=== PATIENT | male | born 1960 | race Caucasian/White ===

== ENCOUNTER → 2017-03-09 | Outpatient (CLI) | payer BC ==
--- NOTE | 2017-03-09 16:09 | CT ---
EXAMINATION TYPE: CT chest wo con DATE OF EXAM: 03/09/2017 COMPARISON: Prior CT chest June 29, 2012. Outside chest x-ray from yesterday. HISTORY: Abnormal cxr at doctor's office. Asbestos exposure. CT DLP: 441.70 mGycm. Automated Exposure Control for Dose Reduction was Utilized. TECHNIQUE: CT scan of the thorax is performed without IV contrast. FINDINGS: LUNGS: The lungs are grossly clear, there is no concerning parenchymal mass or nodule identified. T here is no pleural effusion or pneumothorax seen. No calcified pleural plaques are evident bilaterall y. The tracheobronchial tree is patent. MEDIASTINUM: Lack of IV contrast is noted to limit evaluation for mediastinal and especially hilar ad enopathy. There are no definitive greater than 1 cm hilar or mediastinal lymph nodes. No cardiomega ly or pericardial effusion is seen. OTHER: Patchy bilateral gynecomastia is redemonstrated. There is stable 3 mm calculus upper pole left kidney on axial image 72 redemonstrated. Smaller 1 mm calculus mid pole level right kidney on axial image 76 is suspected. IMPRESSION: No acute pulmonary process. No suspicious pulmonary mass or nodule.
== END | disposition home or self-care (01) ==
LOC: RADCTMAIN 15:43
PROVIDERS: ATTEND Internal Medicine Critical Care Medicine
DX: R07.9 Chest pain, unspecified (principal); Z77.090 Contact with and (suspected) exposure to asbestos
CPT/HCPCS: 71250

== ENCOUNTER → 2018-06-20 | Outpatient (CLI) | payer BC ==
--- NOTE | 2018-06-20 15:59 | XR ---
EXAMINATION TYPE: XR KUB DATE OF EXAM: 06/20/2018 COMPARISON: 05/22/2016 HISTORY: Pain TECHNIQUE: One view abdominal series FINDINGS: The osseous structures are intact. The bowel gas pattern is nonspecific. Right kidney: No definite calcification seen. There is limitation due to overlying bowel content. Left kidney: There is a calcification overlying the upper pole the left kidney measuring 7 mm in long axis. Pelvis: There are nonspecific multiple calcifications in pelvis. All measure less than 5 mm. Findings appear stable from previous exam and likely vascular. Arthropathy of the hips and hypertrophic change of the vertebral column. IMPRESSION: 1. 7 mm upper pole left renal calculus which is stable from previous exam.
[2018-06-20 19:55] LABS: Albumin 4.6 g/dL (3.80-4.90); Albumin/Globulin Ratio 2.3 (1.20-2.10); Anion Gap 7.9 mmol/L (4.00-12.00); Calcium 9.4 mg/dL (8.7-10.3); Carbon Dioxide 29.1 mmol/L (21.6-31.8); LDL Cholesterol,Calculated 71.8 mg/dL (0.0-131.0); Potassium 4.4 mmol/L (3.5-5.5); Total Bilirubin 1.1 mg/dL (0.3-1.2); Total Protein 6.6 g/dL (6.2-8.2); VLDL Calculation 24.2 mg/dL (5.00-40.00)
== END ==
LOC: LABWHC1 14:29
PROVIDERS: ATTEND Urology
DX: E78.2 Mixed hyperlipidemia (principal); D84.9 Immunodeficiency, unspecified
CPT/HCPCS: 36415; 74018; 80053; 80061; 82785

== ENCOUNTER → 2018-06-24 | Outpatient (CLI) | payer BC ==
[2018-06-24 07:55] LABS: Basophils % (A) 0 %; Eosinophils % (A) 0 %; HCT 49.6 % (39.0-53.0); HGB 16.8 gm/dL (13.0-17.5); Lymphocytes # (A) 1.4 k/uL (1.0-4.8); Lymphocytes % (A) 11 %; MCHC 33.9 g/dL (31.0-37.0); MCV 94.4 fL (80.0-100.0); Mean Platelet Volume 7.7; Monocytes # (A) 0.7 k/uL (0-1.0); Monocytes % (A) 5 %; Neutrophils # (A) 9.9 k/uL (1.3-7.7); Neutrophils % (A) 81 %; Platelet Count 189 k/uL (150-450); RBC 5.25 m/uL (4.30-5.90); WBC 12.3 k/uL (3.8-10.6)
== END | disposition home or self-care (01) ==
LOC: LABPAT 06:46
PROVIDERS: ATTEND Urology
DX: Z01.818 Encounter for other preprocedural examination (principal); I10 Essential (primary) hypertension; N35.919 Unspecified urethral stricture, male, unspecified site; Z79.899 Other long term (current) drug therapy
CPT/HCPCS: 36415; 85025; 93005

== ENCOUNTER 2018-06-30 06:40 | Day surgery (SDC) | payer BC ==
[2018-06-29 08:45] VITALS: BMI 32.1
--- NOTE | 2018-06-30 06:26 | P.GSHP ---
History of Present Illness H&P Date: 06/23/18 Chief Complaint: Weak urinary stream The patient is a 58-year-old male with a history of recurrent urolithiasis. He reports increased urinary frequency. He has known medial stenosis, and is suspected to possibly have a urethral stricture. He now comes for a meatotomy and possible direct visual internal ureterotomy (DVIU). - Constitutional Constitutional: Denies chills, Denies fever - Gastrointestinal Gastrointestinal: Denies nausea, Denies vomiting - Genitourinary (Male) Genitourinary: Reports urinary frequency, Denies flank pain Past Medical History - Past Family History Mother Family Medical History: Cancer Additional Family Medical History / Comment(s): breast cancer Daughter(s) Family Medical History: Cancer Additional Family Medical History / Comment(s): kidney cancer Medications and Allergies Home Medications Medication Instructions Recorded Confirmed Type Aspirin 325 mg PO DAILY 06/29/18 06/29/18 History Atenolol 25 mg PO 169906/29/18 06/29/18 History Wayne-3 Fatty Acids/Fish Oil [Fish 1 tab PO DAILY 06/29/18 06/29/18 History Oil 1,000 mg Softgel] Omeprazole [PriLOSEC] 20 mg PO AC-BID 06/29/18 06/29/18 History Quinapril HCl [Accupril] 5 mg PO 169906/29/18 06/29/18 History Simvastatin 40 mg PO 0 06/29/18 06/29/18 History Tamsulosin HCl [Flomax] 0.4 mg PO 169906/29/18 06/29/18 History buPROPion HCL [Wellbutrin Sr] 200 mg PO 169906/29/18 06/29/18 History Allergies Allergy/AdvReac Type Severity Reaction Status Date / Time No Known Allergies Allergy Verified 06/29/18 08:29 Surgical - Exam - General well developed, well nourished, no distress - Respiratory normal respiratory effort, clear to auscultation - Cardiovascular Rhythm: regular Abnormal Heart Sounds: no systolic murmur, no diastolic murmur, no rub, no S3 Gallop, no S4 Gallop, no click, no other - Abdomen Abdomen: soft, non tender, no guarding, no rigid, no rebound - Genitourinary normal penis with no external lesions, testicles non-tender, other (The urethral meatus is small in caliber) - Rectum Rectum: normal sphincter tone, no masses - Psychiatric oriented to time, oriented to person, oriented to place, speech is normal, memory intact Assessment and Plan (1) Urethral meatal stenosis Status: Acute Code(s): SNY7704 - SNOMED Code(s): 10482418 Plan: Meatotomy, cystoscopy, direct visual internal ureterotomy (DVIU). The procedures were reviewed in detail with the patient. Potential risks include anesthesia, bleeding, infection, recurrent stricture, and a deviated urinary stream.
[~2018-06-30 06:40] MED LIST: DEXAMETHASONE SOD PHOSPHATE 10 MG/ML 1 ML VIAL IV ONE; LACTATED RINGERS 1,000 ML IV SCH; LIDOCAINE 1% 20 ML VIAL (10MG/ML) FOR IV START INTRADERMA PRN; ONDANSETRON 4 MG/2 ML VIAL IVP ONE; SCOPOLAMINE 1.5MG/72HR PATCH TRANSDERM ONE
[2018-06-30 07:05] LABS: Glucose,Whole Blood 101 mg/dL (75-99)
[2018-06-30] MEDS ORDERED: fentaNYL (PF) 50 MCG/ML 2 ML AMP ONE (07:35)
[2018-06-30] MEDS ORDERED: PROPOFOL 10 MG/ML 20 ML VIAL IV ONE (07:35)
[2018-06-30] MEDS ORDERED: LIDOCAINE 1% INJ 10MG/ML (20 ML MDV) ONE (07:35)
[2018-06-30] MEDS ORDERED: MIDAZOLAM 2 MG/2 ML VIAL ONE (07:35)
--- NOTE | 2018-06-30 08:15 | P.OP ---
Date of Procedure: 06/30/18 Preoperative Diagnosis: Meatal stenosis, urethral stricture Postoperative Diagnosis: Same Procedure(s) Performed: Meatotomy, cystoscopy, direct visual internal urethrotomy (DVIU) Anesthesia: IVETTE Surgeon: Blane Ryan Estimated Blood Loss (ml): 10 IV fluids (ml): 650 Pathology: none sent Condition: stable Disposition: PACU Indications for Procedure: The patient is a 58-year-old male with a history of urethral stricture disease. He reports a weak urinary stream. On examination, the urethral meatus is somewhat diminished in caliber. Operative Findings: 1) Meatal stenosis, mild. 2). Bulbous urethral stricture. Description of Procedure: The patient was taken to the operating room and placed in the dorsolithotomy position, with his legs supported in Uzair stirrups. The external genitalia was prepped and draped sterilely. The 0 lens was used to advance the visual urethrotome into the urethra. A stricture was encountered within the bulbous urethra, measuring approximately 6 Pakistani in caliber. The length of the stricture was approximately 1 cm. the urethral meatus wouldn't accommodate the 19-Pakistani cystoscopic sheath, but not the 21-Pakistani visual urethrotome. Therefore, the ventral aspect of the urethral meatus was clamped for several minutes, then incised using tenotomy scissors. The meatus would still not accommodate the 21-Pakistani visual urethrotome, so Jose R sounds were used to dilate the meatus to 24-Pakistani. The visual urethrotome was then advanced into the urethra, and using the straight blade, the stricture was incised at the 12 o 'clock position. The incision was carried through the full-thickness of the stricture, which was not at all dense. It was then possible to advance the visual urethrotome into the bladder. Cystoscopy was performed. The 30 lens was used to introduce the 19-Pakistani start cystoscopic sheath through the urethra and into the bladder under direct vision. The prostate revealed a trilobar configuration. The bladder was examined in its entirety. Both ureteral orifices were of normal anatomic location and configuration, and clear urine effluxed from both. No tumors or foreign bodies were seen. Mild trabeculation of the bladder was noted. The cystoscope was removed, and an 18-Pakistani Christianson catheter was placed. The return was clear. The patient tolerated the procedure well was taken to the recovery room in stable condition.
[2018-06-30] MEDS: HYDROmorphone 0.5 MG/0.5 ML SYRINGE IVP PRN ×2 (08:37→08:41)
[2018-06-30 09:07] VITALS: TEMP 97.4
[2018-06-30] MEDS ORDERED: ENALAPRILAT 1.25 MG/ML 1 ML VIAL IVP ONE (10:29)
[2018-06-30] MEDS ORDERED: hydrALAZINE HCL 20 MG/ML 1 ML VIAL IVP ONE (10:32)
[2018-06-30 11:07] VITALS: RESP 18
[2018-06-30 11:31] VITALS: BP 153/90; PULSE 55
== END 2018-06-30 12:27 | disposition home or self-care (01) ==
LOC: OR 06:40
PROVIDERS: ATTEND Urology
DX: N35.912 Unspecified bulbous urethral stricture, male (principal); N32.89 Other specified disorders of bladder; K21.9 Gastro-esophageal reflux disease without esophagitis; F32.9 Major depressive disorder, single episode, unspecified; E78.5 Hyperlipidemia, unspecified; Z80.51 Family history of malignant neoplasm of kidney; Z80.3 Family history of malignant neoplasm of breast; R09.1 Pleurisy; G47.33 Obstructive sleep apnea (adult) (pediatric); Z99.89 Dependence on other enabling machines and devices; Z87.442 Personal history of urinary calculi; Z79.82 Long term (current) use of aspirin; Z79.899 Other long term (current) drug therapy
CPT/HCPCS: 52290; J2250; J0360; J1100; J0690; J2405; J2001; J3010; J2704; J1170

== ENCOUNTER → 2021-04-30 | Outpatient (CLI) | payer BC ==
--- NOTE | 2021-04-30 12:30 | CT ---
EXAMINATION TYPE: CT abdomen pelvis wo con DATE OF EXAM: 04/30/2021 COMPARISON: None HISTORY: Renal Colic CT DLP: 1477 mGycm Examination of the solid and hollow viscera is limited given the lack of contrast. FINDINGS: LUNG BASES: No evidence for nodule. No evidence for infiltrate. LIVER/GB: The gallbladder is unremarkable. No space-occupying hepatic lesion. PANCREAS: No pancreatic mass identified. No inflammatory process seen. SPLEEN: No evidence for splenomegaly. No intrasplenic lesions seen. ADRENALS: No adrenal nodules identified. No evidence for thickening. KIDNEYS: There is a 4.9 mm calculus within the urinary bladder compatible with recently passed calcul us. There is no evidence for hydronephrosis at this time. 3 mm calculus upper pole left kidney. 2.5 m m calculus lower pole right kidney and 2 mm calculus mid pole right kidney. BOWEL: Appendix has a normal appearance. No evidence of bowel obstruction. No inflammatory process. Lymph nodes: No evidence for adenopathy greater than 1 cm. Abdominal aorta: Atheromatous changes seen. No evidence for aneurysm. Genital organs: No significant abnormality. Other: No significant abnormality. IMPRESSION: 1. Calculus within the urinary bladder suggests a recently passed calculus.
== END | disposition home or self-care (01) ==
LOC: RADCTMAIN 11:48
PROVIDERS: ATTEND Urology
DX: N23 Unspecified renal colic (principal); N21.0 Calculus in bladder
CPT/HCPCS: 74176

== ENCOUNTER 2022-02-08 19:06 | Emergency (ER) | payer BC ==
[2022-02-08 19:19] VITALS: RESP 16; TEMP 97.8
--- NOTE | 2022-02-08 19:43 | ED ---
Head Injury HPI - General Chief complaint: Head Injury Stated complaint: fall, on thinners Time Seen by Provider: 02/08/22 19:30 Source: patient, family, RN notes reviewed, old records reviewed Mode of arrival: ambulatory Limitations: no limitations - History of Present Illness Initial comments: This is a well-appearing 61-year-old male who presents ambulatory with family after falling last night headfirst into a wood pile. Patient did not lose consciousness. He is on Eliquis for history of DVT. States that he has a headache that radiates down into his neck and shoulders today. MD Complaint: head injury, head pain, fall -: days(s) (1; 8pm yesterday) Location: other (vertex) Loss of Consciousness: no Place: outdoors Radiation: neck, other (shoulders) Severity scale (1-10): 9 - Related Data Home Medications Medication Instructions Recorded Confirmed Aspirin 325 mg PO DAILY 06/29/18 06/30/18 Radom-3 Fatty Acids/Fish Oil [Fish 1 tab PO DAILY 06/29/18 06/30/18 Oil 1,000 mg Softgel] Omeprazole [PriLOSEC] 20 mg PO AC-BID 06/29/18 06/30/18 Quinapril HCl [Accupril] 5 mg PO 1700 06/29/18 06/30/18 Simvastatin 40 mg PO 1700 06/29/18 06/30/18 Tamsulosin HCl [Flomax] 0.4 mg PO 1700 06/29/18 06/30/18 atenoloL 25 mg PO 1700 06/29/18 06/30/18 buPROPion HCL [Wellbutrin Sr] 200 mg PO 1700 06/29/18 06/30/18 Previous Rx's Medication Instructions Recorded Cyclobenzaprine [Flexeril] 10 mg PO TID PRN #15 tab 02/08/22 Allergies/Adverse reactions: Allergies Allergy/AdvReac Type Severity Reaction Status Date / Time No Known Allergies Allergy Verified 02/08/22 19:15 Review of Systems ROS Statement: Those systems with pertinent positive or pertinent negative responses have been documented in the HPI. ROS Other: All systems not noted in ROS Statement are negative. Past Medical History Past Medical History: Deep Vein Thrombosis (DVT), Hyperlipidemia, Hypertension Additional Past Medical History / Comment(s): Pleurisy History of Any Multi-Drug Resistant Organisms: None Reported Past Surgical History: Appendectomy Additional Past Surgical History / Comment(s): osteoarthritis Past Psychological History: No Psychological Hx Reported Smoking Status: Never smoker Past Alcohol Use History: None Reported Past Drug Use History: None Reported General Exam Limitations: no limitations General appearance: alert, in no apparent distress Head exam: Present: other (dried scale abrasion/laceration to vortex) Eye exam: Present: normal appearance. Absent: scleral icterus, conjunctival injection, periorbital swelling Neck exam: Absent: tenderness, meningismus Respiratory exam: Absent: respiratory distress, accessory muscle use Cardiovascular Exam: Present: bradycardia Neurological exam: Present: alert, oriented X3, normal gait Psychiatric exam: Present: normal affect, normal mood Skin exam: Present: warm, dry, normal color. Absent: cyanosis, diaphoretic Course Vital Signs 02/08/22 02/08/22 19:15 22:14 Temperature 97.8 F Pulse Rate 53 L 78 Respiratory 16 16 Rate Blood Pressure 155/84 148/83 O2 Sat by Pulse 96 98 Oximetry Medical Decision Making - Medical Decision Making Patient fell last night at 8 PM hitting his head on a woodpile. Did not lose consciousness. He did sustain an abrasion to the top of his head. Does take Eliquis for DVT history. Tetanus shot is up-to-date. CT of the brain and C-spine showed no intracranial process, no cervical spine fracture. Patient is able to ambulate with steady gait, no focal neurological deficits. Dr. Diana evaluated patient in [facility]. Patient's pain is likely musculoskeletal. He was given Norflex for pain and a prescription Flexeril. Instructed to increase his fluid intake. He'll be discharged home to follow up with his primary care doctor and return to the emergency room with any new or concerning symptoms. Disposition Clinical Impression: Closed head injury, Abrasion Disposition: HOME SELF-CARE Condition: Good Instructions (If sedation given, give patient instructions): Head Injury (ED), Abrasion (ED) Additional Instructions: Tylenol as needed for pain or discomfort. Follow-up with your primary care doctor next week. Return to the emergency room with any new or concerning symptoms Prescriptions: Cyclobenzaprine [Flexeril] 10 mg PO TID PRN #15 tab PRN Reason: Muscle Spasm Is patient prescribed a controlled substance at d/c from ED?: No Referrals: Balta Barfield MD [Primary Care Provider] - 1-2 days Time of Disposition: 21:17
[2022-02-08] MEDS ORDERED: ORPHENADRINE 30 MG/ML 2 ML VIAL IM STA (21:14)
--- NOTE | 2022-02-08 21:38 | CT ---
EXAMINATION TYPE: CT brain joslyn alexis DATE OF EXAM: 02/08/2022 COMPARISON: None HISTORY: Fall Head trauma CT DLP: 1797.6 mGycm Automated exposure control for dose reduction was used. Images of the brain and cervical spine obtained with no contrast. Ventricles have normal size. There is no mass effect or midline shift. No sign of intracranial hemorr marcus. The calvarium is intact. Skull base is intact. There is normal aeration of the mastoid sinuses. No evidence of cerebral edema. The cervical vertebra have normal alignment. There is vacuum disc and disc space narrowing at C6-7. T here is mild spurring of the endplates in the lower cervical spine. There is hypertrophic multilevel mild cervical facet arthropathy. No compression fracture. Prevertebral soft tissues are intact. 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 No fracture seen. There is uncovertebral sp urring and neural foraminal narrowing at C6-7 bilaterally. No fracture. Negative CT scan of the brain.
[2022-02-08 22:15] VITALS: BP 148/83; PULSE 78
== END 2022-02-08 22:14 | disposition home or self-care (01) ==
LOC: EC 19:06
DX: S00.91XA Abrasion of unspecified part of head, initial encounter (principal); I10 Essential (primary) hypertension; E78.5 Hyperlipidemia, unspecified; I82.409 Acute embolism and thrombosis of unspecified deep veins of unspecified lower extremity; Z79.01 Long term (current) use of anticoagulants; Z79.82 Long term (current) use of aspirin; W18.39XA Other fall on same level, initial encounter
CPT/HCPCS: 99283; 96374; 72125; 70450; 99284; 96372; J2360

== ENCOUNTER → 2023-08-12 | Outpatient (CLI) | payer BC ==
[2023-08-12 16:02] LABS: BUN/Creat Ratio 15.92 Ratio (12.00-20.00); Blood Urea Nitrogen 19.1 mg/dL (9.0-27.0); Chloride 105 mmol/L (96-109); Glucose 123 mg/dL (70-110); Potassium 4.6 mmol/L (3.5-5.5); Sodium 144 mmol/L (135-145)
[2023-08-12 16:03] LABS: Calcium 9.8 mg/dL (8.7-10.3); Carbon Dioxide 28.7 mmol/L (21.6-31.8)
[2023-08-12 17:03] LABS: Basophils # (A) 0.06 X 10*3/uL (0.00-0.10); Basophils % (A) 0.9 %; Eosinophils # (A) 0.34 X 10*3/uL (0.04-0.35); Eosinophils % (A) 5.3 %; HCT 50.3 % (39.6-50.0); HGB 17.2 g/dL (13.0-17.0); Lymphocytes # (A) 1.89 X 10*3/uL (0.90-5.00); Lymphocytes % (A) 29.4 %; MCH 31.7 pg (27.0-32.0); MCHC 34.2 g/dL (32.0-37.0); MCV 92.6 FL (80.0-97.0); Mean Platelet Volume 11.7 FL (9.5-12.2); Monocytes # (A) 0.57 X 10*3/uL (0.20-1.00); Monocytes % (A) 8.9 %; NRBC Per 100 WBC 0 X 10*3/uL (0.00-0.01); Neutrophils # (A) 3.55 X 10*3/uL (1.80-7.70); Neutrophils % (A) 55.3 %; Platelet Count 207 X 10*3/uL (140-440); RBC 5.43 X 10*6/uL (4.40-5.60); RDW 11.9 % (11.5-14.5); WBC 6.42 X 10*3/uL (4.50-10.00)
== END | disposition home or self-care (01) ==
LOC: LABPAT 12:03
PROVIDERS: ATTEND Urology
DX: Z01.812 Encounter for preprocedural laboratory examination (principal); N40.1 Benign prostatic hyperplasia with lower urinary tract symptoms; N21.0 Calculus in bladder
CPT/HCPCS: 36415; 80048; 85025

== ENCOUNTER 2023-08-19 11:04 | Day surgery (SDC) | payer BC ==
[2023-08-13 15:08] VITALS: BMI 32.0
--- NOTE | 2023-08-17 07:08 | P.GSHP ---
History of Present Illness H&P Date: 08/17/23 Chief Complaint: Weak urinary stream Patient is a 63-year-old white male with a history of BPH and urethral strictures. He underwent a DVIU in 2019. He has been treated with tamsulosin. In addition to a weak urinary stream, he has recently experienced hesitancy and dysuria, as well as occasional urinary urge incontinence. Cystoscopy shows a 6 mm bladder calculus, bladder trabeculation with cellules, and trilobar BPH with a large intravesical median lobe. - Cardiovascular Cardiovascular: Reports high blood pressure - Genitourinary (Male) Genitourinary: Reports as per HPI Past Medical History Past Medical History: Deep Vein Thrombosis (DVT), Hyperlipidemia, Hypertension, Osteoarthritis (OA), Prostate Disorder Additional Past Medical History / Comment(s): Pleurisy. DVT LT LEG. BLADDER STONE History of Any Multi-Drug Resistant Organisms: None Reported Past Surgical History: Appendectomy Additional Past Surgical History / Comment(s): COLONOSCOPY Past Anesthesia/Blood Transfusion Reactions: No Reported Reaction Smoking Status: Never smoker - Past Family History Mother Family Medical History: No Reported History Medications and Allergies Home Medications Medication Instructions Recorded Confirmed Type Omeprazole [PriLOSEC] 20 mg PO DAILY 06/29/18 08/13/23 History Quinapril HCl [Accupril] 5 mg PO DAILY 06/29/18 08/13/23 History atenoloL 25 mg PO DAILY 06/29/18 08/13/23 History buPROPion HCL [Wellbutrin Sr] 200 mg PO BID 06/29/18 08/13/23 History Atorvastatin [Lipitor] 40 mg PO DAILY 08/13/23 08/13/23 History Allergies Allergy/AdvReac Type Severity Reaction Status Date / Time No Known Allergies Allergy Verified 08/13/23 14:38 Surgical - Exam - General well developed, well nourished, no distress - Respiratory normal respiratory effort - Abdomen Abdomen: soft, non tender, no guarding, no rigid, no rebound - Genitourinary normal penis with no external lesions, testicles non-tender - Rectum Rectum: normal sphincter tone, no masses, other (Prostate moderately enlarged but smooth) - Psychiatric oriented to time, oriented to person, oriented to place, speech is normal, memory intact Assessment and Plan Assessment: Patient was advised to undergo removal of his bladder calculus. Alternative BPH treatment options were reviewed in detail, both medical and surgical. He has elected to undergo a TURP. (1) Calculus in bladder Status: Acute Code(s): N21.0 - CALCULUS IN BLADDER SNOMED Code(s): 59051044 (2) Benign prostatic hyperplasia with lower urinary tract symptoms Status: Acute Code(s): N40.1 - BENIGN PROSTATIC HYPERPLASIA WITH LOWER URINARY TRACT SYMP SNOMED Code(s): 245644788 Plan: Cystoscopy with cystoscopy lithotripsy, transurethral resection of prostate (TURP). The procedure has been reviewed in detail with the patient. He has been made aware of potential risks, which include anesthesia, bleeding, infection, bladder perforation, vesical neck contracture, urinary incontinence, erectile dysfunction, and retrograde ejaculation.
[~2023-08-19 11:04] MED LIST changes: -DEXAMETHASONE SOD PHOSPHATE 10 MG/ML 1 ML VIAL IV ONE; +HYDROmorphone 0.5 MG/0.5 ML SYRINGE IVP PRN; -LACTATED RINGERS 1,000 ML IV SCH; +LIDOCAINE 1% (10MG/ML) FOR IV START INTRADERMA PRN; -LIDOCAINE 1% 20 ML VIAL (10MG/ML) FOR IV START INTRADERMA PRN; -ONDANSETRON 4 MG/2 ML VIAL IVP ONE; -SCOPOLAMINE 1.5MG/72HR PATCH TRANSDERM ONE
--- NOTE | 2023-08-19 11:44 | XR ---
EXAMINATION TYPE: XR KUB DATE OF EXAM: 08/19/2023 11:24 AM CLINICAL INDICATION:Male, 63 years old with history of BPH with Obstruction Bladder Calculi N40.1 N21 .0; [facility] COMPARISON: 06/20/2018. TECHNIQUE: One radiographic view of the abdomen was obtained. FINDINGS: The bowel gas pattern is nonspecific without dilated loops of small or large bowel. There i s no evidence for organomegaly or pneumoperitoneum. The osseous structures are intact. Left upper re nal calculus suggested measuring up to 5 mm. Fecal material and gas are demonstrated throughout the c olon and rectum. Mild degeneration changes throughout the spine spine. IMPRESSION: * Left upper renal calculus * Nonspecific bowel gas pattern without radiographic evidence for acute process.
[2023-08-19] MEDS: LACTATED RINGERS 1,000 ML IV SCH (12:06)
[2023-08-19] MEDS: ONDANSETRON 4 MG/2 ML VIAL IVP ONE (12:06)
[2023-08-19] MEDS: DEXAMETHASONE SOD PHOSPHATE 4 MG/ML 1 ML VIAL IV ONE (12:06)
[2023-08-19] MEDS: MIDAZOLAM 2 MG/2 ML VIAL IV PRN (12:09)
[2023-08-19] MEDS ORDERED: SUCCINYLCHOLINE CHLORIDE 200 MG/10 ML VIAL IV ONE (14:24)
[2023-08-19] MEDS ORDERED: HYDROmorphone (PF) 1 MG/ML ONE (14:24)
[2023-08-19] MEDS ORDERED: GLYCOPYRROLATE 0.2 MG/ML 2 ML VIAL ONE (14:24)
[2023-08-19] MEDS ORDERED: ROCURONIUM 10 MG/ML (5 ML VIAL) IV ONE (14:24)
[2023-08-19] MEDS ORDERED: fentaNYL (PF) 50 MCG/ML 2 ML AMP ONE (14:24)
[2023-08-19] MEDS ORDERED: MIDAZOLAM 2 MG/2 ML VIAL ONE (14:24)
[2023-08-19] MEDS ORDERED: NEOSTIGMINE 1 MG/ML 10 ML VIAL ONE (14:24)
[2023-08-19] MEDS ORDERED: LIDOCAINE 1% INJ 10MG/ML (20 ML MDV) ONE (14:24)
[2023-08-19] MEDS ORDERED: PROPOFOL 10 MG/ML 20 ML VIAL IV ONE (14:24)
[2023-08-19] MEDS: ceFAZolin 3 GM in SODIUM CHLORIDE 0.9% 100 ML IVPB PRN (14:29)
[2023-08-19] MEDS: LACTATED RINGERS 1,000 ML IV ONE (16:20)
--- NOTE | 2023-08-19 16:54 | P.OP ---
Date of Procedure: 08/19/23 Preoperative Diagnosis: Bladder calculus, BPH with obstruction Postoperative Diagnosis: Same Procedure(s) Performed: Cystoscopy with removal of bladder calculus, bipolar transurethral resection of prostate (TURP) Anesthesia: IVETTE Surgeon: Blane Ryan Estimated Blood Loss (ml): 50 IV fluids (ml): 900 Pathology: other (Bladder calculus, prostate chips) Condition: stable Disposition: PACU Indications for Procedure: Patient is a 63-year-old white male with a history of BPH and urethral strictures. He underwent a DVIU in 2019. He has been treated with tamsulosin. In addition to a weak urinary stream, he has recently experienced hesitancy and dysuria, as well as occasional urinary urge incontinence. Cystoscopy shows a 6 mm bladder calculus, bladder trabeculation with cellules, and trilobar BPH with a large intravesical median lobe. Operative Findings: 5 mm bladder calculus, successfully removed. Trilobar BPH resulting in complete obstruction. Description of Procedure: The patient was taken in the operating room and placed in the dorsolithotomy position. The external genitalia was prepped and draped sterilely. The 21 Somali Hernandez cystoscopic sheath was passed through the urethra and into the bladder under direct vision. A wide caliber urethral stricture was noted, but there was no resistance to passing the cystoscope. The prostate was visually occluded, with a trilobar configuration. The median lobe was prominent and extended intravesically. The ureteral orifice ease appeared normal. No tumors were seen. A 5 mm bladder calculus was seen and was removed through the cystos cope. The Macfarlan urethrotome was used to incise the urethra to 26 Somali. The 25-Somali ACMI resectoscope sheath was introduced into the bladder. Using the bipolar cutting loop, the median lobe was resected in its entirety. Next, the floor of the prostate was resected, up to the verumontanum. The lateral lobes were resected down to the surgical capsule. Next, the anterior tissue was resected. The residual apical tissue was then carefully resected, with care taken to avoid injury to the external urinary sphincter. The resection was carried down to the surgical capsule in all 4 quadrants. The prostatic fossa was then carefully examined, and any areas of bleeding were controlled with electrocautery. Excellent hemostasis was attained. The resectoscope was withdrawn into the bulbous urethra. The external urinary sphincter remained intact. The prostatic fossa was open. The [employer] evacuator was used to remove all prostate chips from the bladder. These were saved and sent for pathologic examination. The resectoscope was removed, and a 20 Somali Christianson catheter was placed. The return was essentially clear. The patient tolerated the procedure well was taken to the recovery room in stable condition.
[2023-08-19 16:58] VITALS: RESP 16; TEMP 97
[2023-08-19 18:00] VITALS: BP 136/78; PULSE 55
== END 2023-08-19 18:23 | disposition home or self-care (01) ==
LOC: OR 11:04
PROVIDERS: ATTEND Urology
DX: C61 Malignant neoplasm of prostate (principal); N21.0 Calculus in bladder; I10 Essential (primary) hypertension; E78.5 Hyperlipidemia, unspecified; M19.90 Unspecified osteoarthritis, unspecified site; K21.9 Gastro-esophageal reflux disease without esophagitis; I31.9 Disease of pericardium, unspecified; Z98.890 Other specified postprocedural states; Z79.899 Other long term (current) drug therapy; Z90.49 Acquired absence of other specified parts of digestive tract; Z86.718 Personal history of other venous thrombosis and embolism
CPT/HCPCS: 52601; 88344; 88305; 82365; 74018; J2250; J0330; J1100; J2710; J0690; J2405; J2001; J3010; J1170; J2704

== ENCOUNTER → 2023-10-18 | Outpatient (CLI) | payer BC ==
[2023-10-18 14:58] LABS: ALT 42 U/L (10-49); AST 26 U/L (14-35); Albumin 4.6 g/dL (3.8-4.9); Alkaline Phosphatase 92 U/L (41-126); BUN/Creat Ratio 14.18 Ratio (12.00-20.00); Blood Urea Nitrogen 15.6 mg/dL (9.0-27.0); Calcium 9.4 mg/dL (8.7-10.3); Carbon Dioxide 27.3 mmol/L (21.6-31.8); Chloride 104 mmol/L (96-109); Chol/HDL Ratio 3.05 Ratio; Globulin 2.3 g/dL (1.6-3.3); Glucose 113 mg/dL (70-110); LDL Cholesterol,Calculated 68.1 mg/dL (0.0-131.0); Potassium 4.5 mmol/L (3.5-5.5); Sodium 141 mmol/L (135-145); Total Bilirubin 0.7 mg/dL (0.3-1.2); Total Protein 6.9 g/dL (6.2-8.2)
== END | disposition home or self-care (01) ==
LOC: LABWHC1 09:53
PROVIDERS: ATTEND Internal Medicine Interventional Cardiology
DX: I10 Essential (primary) hypertension (principal); E78.2 Mixed hyperlipidemia
CPT/HCPCS: 36415; 80053; 80061

== ENCOUNTER 2024-04-03 08:04 | Observation (INO) | payer BC ==
[2024-04-03] MEDS: ASPIRIN 81 MG PO STA (08:36)
[2024-04-03 08:42] LABS: Basophils # (A) 0.1 k/uL (0-0.2); Basophils % (A) 1 %; Eosinophils # (A) 0.2 k/uL (0-0.7); Eosinophils % (A) 4 %; HCT 49.1 % (39.0-53.0); HGB 16.5 gm/dL (13.0-17.5); Lymphocytes # (A) 1.6 k/uL (1.0-4.8); Lymphocytes % (A) 25 %; MCH 31.5 pg (25.0-35.0); MCHC 33.6 g/dL (31.0-37.0); MCV 93.6 fL (80.0-100.0); Monocytes # (A) 0.5 k/uL (0-1.0); Monocytes % (A) 7 %; Neutrophils # (A) 3.9 k/uL (1.3-7.7); Neutrophils % (A) 61 %; Platelet Count 170 k/uL (150-450); RBC 5.24 m/uL (4.30-5.90); RDW 12.1 % (11.5-15.5); WBC 6.4 k/uL (3.8-10.6)
--- NOTE | 2024-04-03 08:50 | ED ---
Chest Pain HPI - General Chief Complaint: Chest Pain Stated Complaint: chest pain Time Seen by Provider: 04/03/24 08:10 Source: patient, RN notes reviewed Mode of arrival: wheelchair Limitations: no limitations - History of Present Illness Initial Comments: 63-year-old male presents emergency department complaint of chest pain, epigastric pain. Patient states this started around midnight states he had some sharp pain in his central lower chest and his right arm. He states he now just feels like a pressure in his chest he states he does not feel currently short of breath. Patient denies any fevers or chills he states he does have a history of hyperlipidemia he has had a prior heart cath years ago but no prior cardiac stents. He denies any abdominal or lower back pain denies any focal weakness. - Related Data Home Medications Medication Instructions Recorded Confirmed Omeprazole [PriLOSEC] 20 mg PO DAILY 06/29/18 04/03/24 atenoloL 25 mg PO DAILY 06/29/18 04/03/24 buPROPion HCL [Wellbutrin Sr] 200 mg PO BID 06/29/18 04/03/24 Atorvastatin [Lipitor] 40 mg PO DAILY 08/13/23 04/03/24 Multivitamins, Thera [Multivitamin 1 tab PO DAILY 04/03/24 04/03/24 (formulary)] ramipriL 10 mg PO DAILY 04/03/24 04/03/24 Allergies Allergy/AdvReac Type Severity Reaction Status Date / Time No Known Allergies Allergy Verified 04/03/24 10:57 Review of Systems ROS Statement: Those systems with pertinent positive or pertinent negative responses have been documented in the HPI. ROS Other: All systems not noted in ROS Statement are negative. EKG Findings - EKG Comments: EKG Findings:: EKG performed today: 17 sinus bradycardia rate of 59 UT 203 QRS 84 QT/QTc 396/394. Repeat EKG performed at 8: 46 sinus rhythm with multiple PVCs rate of 78 QRS 94 QT/QTc 388/421 - EKG Results: EKG: interpreted by RUSSELL Past Medical History Past Medical History: Deep Vein Thrombosis (DVT), Hyperlipidemia, Hypertension Additional Past Medical History / Comment(s): Pleurisy History of Any Multi-Drug Resistant Organisms: None Reported Past Surgical History: Appendectomy, Prostate Surgery Additional Past Surgical History / Comment(s): osteoarthritis, TURP procedure Past Anesthesia/Blood Transfusion Reactions: No Reported Reaction Past Psychological History: No Psychological Hx Reported Smoking Status: Never smoker Past Alcohol Use History: None Reported Past Drug Use History: None Reported - Past Family History Mother Family Medical History: No Reported History General Exam Limitations: no limitations General appearance: alert, in no apparent distress Head exam: Present: atraumatic, normocephalic, normal inspection Eye exam: Present: normal appearance, PERRL, EOMI. Absent: scleral icterus, conjunctival injection, periorbital swelling ENT exam: Present: normal exam, normal oropharynx, mucous membranes moist Neck exam: Present: normal inspection, full ROM. Absent: tenderness, meningismus, lymphadenopathy Respiratory exam: Present: normal lung sounds bilaterally. Absent: respiratory distress, wheezes, rales, rhonchi, stridor Cardiovascular Exam: Present: regular rate, normal rhythm, normal heart sounds. Absent: systolic murmur, diastolic murmur, rubs, gallop, clicks GI/Abdominal exam: Present: soft, normal bowel sounds. Absent: distended, tenderness, guarding, rebound, rigid Course Vital Signs 04/03/24 04/03/24 04/03/24 08:06 08:39 09:57 Temperature 97.4 F L Pulse Rate 63 76 70 Respiratory 18 18 18 Rate Blood Pressure 149/85 162/69 O2 Sat by Pulse 97 95 97 Oximetry 04/03/24 04/03/24 04/03/24 10:32 11:37 13:18 Temperature Pulse Rate 70 80 70 Respiratory 16 16 16 Rate Blood Pressure 147/84 156/89 153/90 O2 Sat by Pulse 96 97 96 Oximetry Chest Pain MDM - MDM Was pt. sent in by a medical professional or institution (, PA, RECORDIST CHIEF, urgent care, hospital, or group home...) When possible be specific @ -No Did you speak to anyone other than the patient for history (EMS, parent, family, police, friend...)? What history was obtained from this source @ -No Did you review nursing and triage notes (agree or disagree)? Why? @ -I reviewed and agree with nursing and triage notes Were old charts reviewed (outside hosp., previous admission, EMS record, old EKG, old radiological studies, urgent care reports/EKG's, group home records)? Report findings @ -No old charts were reviewed Differential Diagnosis (chest pain, altered mental status, abdominal pain women, abdominal pain men, vaginal bleeding, weakness, fever, dyspnea, syncope, headache, dizziness, GI bleed, back pain, seizure, CVA, palpatations, mental health, musculoskeletal)? @ -Differential Chest Pain: Stable Angina, Unstable Angina, STEMI, NSTEMI Aortic Dissection, Pneumothorax, Musculoskeletal, Esophageal Spasm GERD, Cholecystitis, Pancreatitis, Zoster, this is not meant to be an all-inclusive list. EKG interpreted by me (3pts min.). @ -As above X-rays interpreted by me (1pt min.). @ -Chest x-ray shows no acute cardiopulmonary process CT interpreted by me (1pt min.). @ -CT angio of the chest shows no evidence of PE, possible nodule. U/S interpreted by me (1pt. min.). @ -Ultrasound venous Doppler left leg negative for DVT. What testing was considered but not performed or refused? (CT, X-rays, U/S, labs)? Why? @ -None What meds were considered but not given or refused? Why? @ -None Did you discuss the management of the patient with other professionals (professionals i.e. , PA, RECORDIST CHIEF, lab, RT, psych nurse, social work instructor, leisure travel agent, teacher, safety and security officer, casework specialist)? Give summary @ -Dr. Barfield for admission Was smoking cessation discussed for >3mins.? @ -No Was critical care preformed (if so, how long)? @ -No Were there social determinants of health that impacted care today? How? (Homelessness, low income, unemployed, alcoholism, drug addiction, transportation, low edu. Level, literacy, decrease access to med. care, halfway, rehab)? @ -No Was there de-escalation of care discussed even if they declined (Discuss DNR or withdrawal of care, Hospice)? DNR status @ -No What co-morbidities impacted this encounter? (DM, HTN, Smoking, COPD, CAD, Cancer, CVA, ARF, Chemo, Hep., AIDS, mental health diagnosis, sleep apnea, morbid obesity)? @ -Hyperlipidemia Was patient admitted / discharged? Hospital course, mention meds given and route, prescriptions, significant lab abnormalities, going to OR and other pertinent info. @ -Admitted patient admitted for cardiac rule out negative CT, laboratory studies. Patient had ultrasound left lower extremity which was also negative for DVT. Patient will have echocardiogram, repeat laboratory studies. Undiagnosed new problem with uncertain prognosis? @ -No Drug Therapy requiring intensive monitoring for toxicity (Heparin, Nitro, Insulin, Cardizem)? @ -No Were any procedures done? @ -No Diagnosis/symptom? @ -Chest pain Acute, or Chronic, or Acute on Chronic? @ -Acute Uncomplicated (without systemic symptoms) or Complicated (systemic symptoms)? @ -Complicated Side effects of treatment? @ -No Exacerbation, Progression, or Severe Exacerbation? @ -No Poses a threat to life or bodily function? How? (Chest pain, [place], [place], pneumonia, PE, COPD, DKA, ARF, appy, cholecystitis, CVA, Diverticulitis, Homicidal, Suicidal, threat to staff... and all critical care pts) @ -yes Possible ACS, causing cardiac arrest. Disposition Clinical Impression: Chest pain Disposition: ADMITTED IP TO THIS [facility] Time of Disposition: 11:20
[2024-04-03 08:53] LABS: ALT 37 U/L (4-49); African American GFR (CKD) >90 (>60 ml/min/1.73 sqM); Albumin 4.6 g/dL (3.5-5.0); Anion Gap 10 mmol/L; Blood Urea Nitrogen 22 mg/dL (9-20); Carbon Dioxide 23 mmol/L (22-30); Chloride 105 mmol/L (98-107); Glucose 140 mg/dL (74-99); Non-African American GFR(CKD) 80 (>60 ml/min/1.73 sqM); Sodium 138 mmol/L (137-145); Total Bilirubin 1.3 mg/dL (0.2-1.3); Total Protein 7.3 g/dL (6.3-8.2)
[2024-04-03 08:56] LABS: AST 34 U/L (17-59); INR 1.1 (<1.2); Partial Thromboplastin Time 25.1 sec (22.0-30.0); Potassium 4.1 mmol/L (3.5-5.1); Prothrombin Time 11.5 sec (10.0-12.5)
[2024-04-03 08:57] LABS: Alkaline Phosphatase 80 U/L (38-126)
[2024-04-03 09:02] LABS: NT-Pro-B-Type Natriuretic Pept 216 pg/mL
--- NOTE | 2024-04-03 09:20 | XR ---
EXAMINATION TYPE: XR chest 2V DATE OF EXAM: 04/03/2024 8:36 AM COMPARISON: None CLINICAL INDICATION: Male, 63 years old with history of Chest Pain; TECHNIQUE: XR chest 2V Frontal and lateral views of the chest. FINDINGS: Lungs/Pleura: There is no evidence of pleural effusion, focal consolidation, or pneumothorax. Pulmonary vascularity: Unremarkable. Heart/mediastinum: Cardiomediastinal silhouette is unremarkable. Musculoskeletal: No acute osseous pathology. IMPRESSION: No acute cardiopulmonary disease/process. [facility], , 04/03/2024 9:18 AM
--- NOTE | 2024-04-03 10:21 | US ---
EXAMINATION TYPE: US venous doppler duplex LE LT DATE OF EXAM: 04/03/2024 10:13 AM COMPARISON: NONE CLINICAL INDICATION: Male, 63 years old with history of pain; Pain x 10 hours. Hx clot in left leg 4 years ago per patient., TECHNIQUE: The lower extremity deep venous system is examined utilizing real time linear array sonog lupillo with graded compression, color doppler sonography, and spectral doppler. SIDE PERFORMED: Left FINDINGS: VESSELS IMAGED: Common Femoral Vein Deep Femoral Vein Greater Saphenous Vein * Femoral Vein Popliteal Vein Small Saphenous Vein * Proximal Calf Veins (* superficial vessels) Left Leg: No evidence of DVT. IMPRESSION: No ultrasound evidence for deep venous thrombosis. [facility], , 04/03/2024 10:19 AM
--- NOTE | 2024-04-03 10:27 | CT ---
EXAMINATION TYPE: CT chest angio for PE DATE OF EXAM: 04/03/2024 COMPARISON: 03/09/2017 and radiograph same day HISTORY: 63-year-old male with chest pain, Positive D-dimer TECHNIQUE: Contiguous axial scanning of the chest performed with IV Contrast, patient injected with 1 00 ml mL of Isovue 370. Coronal/sagittal MIP reconstructions performed. CT DLP: 624 mGycm Automated exposure control for dose reduction was used. FINDINGS: The heart is upper limits of normal in size without pericardial effusion. No flattening of the interv entricular septum or reflux of contrast into the hepatic veins. Ascending aorta ectatic at 3.8 cm. In metatarsal vessel branching anatomy. Ectatic upper descending t horacic aorta up to 3.4 cm. There is a prominent right hilar lymph node measuring 1.7 cm. Otherwise, no thoracic lymphadenopathy by CT size criteria. Satisfactory opacification of the pulmonary arterial system. Limitation due to breathing motion artif act. No large central or definite lobar branch pulmonary embolus. Some of the segmental and more dist al arterial branches are limited due to the breathing artifact. No definite pulmonary embolus is seen . Lungs show no consolidation or pleural effusion. Tiny hiatal hernia. Visualized upper abdomen shows low-attenuation in the hepatic parenchyma compatib le with fatty infiltration. Nonobstructive 4 mm left renal stone. Bones: Mild degenerative disc disease throughout the thoracic spine. IMPRESSION: 1. BREATHING MOTION ARTIFACT LIMITING THE EVALUATION. NO DEFINITE PULMONARY EMBOLUS. 2. A prominent right hilar lymph node measuring 1.7 cm. This may be reactive/post inflammatory. Recom mend three-month follow-up CT chest to ensure stability/resolution and exclude a neoplastic etiology. 3. Tiny hiatal hernia and hepatic steatosis. 4 mm nonobstructive left renal stone. [facility], , 04/03/2024 10:24 AM
[2024-04-03] MEDS ORDERED: NITROGLYCERIN SL TABS 0.4 MG TAB SUBLINGUAL PRN (11:17)
[2024-04-03] MEDS: atenoloL 25 MG TAB PO SCH (13:17)
[2024-04-03] MEDS: lisinopriL 20 MG TAB PO SCH (13:17)
[2024-04-03] MEDS: ATORVASTATIN 40 MG TAB PO SCH (13:17)
--- NOTE | 2024-04-03 13:46 | P.CRDCN ---
History of Present Illness Consult date: 04/03/24 Consult reason: chest pain History of present illness: This is a 63-year-old male patient of Dr. Hyde with past medical history of hypertension, dyslipidemia, nonischemic cardiomyopathy, DVT, PVCs. We have been asked to evaluate the patient for chest pain. Patient states that he was sitting in his recliner and simultaneously he had electrifying mid chest pain and also electrifying pain in his right hand. He states it had been about 6 ti mes around midnight pain did not seem to be related to movement. No lightheadedness or dizziness, no syncopal episodes. Blood pressure 156/89, heart rate 80, pulse ox 97% on room air. Patient is seen today in the emergency center waiting for a bed on the cardiac stepdown unit. EKG: #1 sinus rhythm with frequent PVCs, #2 sinus rhythm with no acute ST-T wave changes. Chest x-ray: No acute process CTA of the chest no definite PE Ultrasound of the left lower extremity negative for DVT Laboratory studies: WBC 6.4, hemoglobin 16.5. D-dimer 2.9. Electrolytes are normal with BUN 22 creatinine 0.99. Magnesium is 2. Troponin negative x 2. proBNP 216. Home cardiac medications: Atenolol 25 mg daily, atorvastatin 40 mg daily, ramipril 10 mg daily. Cardiac catheterization performed in 2002 revealed EF of 45% and normal coronary arteries Echocardiogram performed in the office on 12/23/2021 revealed EF of 50 to 55%, indeterminate diastolic dysfunction. Severe left ventricular hypertrophy. Mild MR, mild TR, normal PASP, mild to moderate pulmonic regurgitation. Lexiscan Cardiolite stress test performed 11/13/2021 revealed EF of 57%, no ischemia, fixed cavity dilatation. Review Of Systems: At the time of my exam: CONSTITUTIONAL: Denies fever or chills. HEENT: Denies blurred vision, vision changes, or eye pain. Denies hemoptysis CARDIOVASCULAR: Denies chest pain. Denies orthopnea. Denies PND. Denies palpitations RESPIRATORY: Denies shortness of breath. GASTROINTESTINAL: Denies abdominal pain. Denies nausea or vomiting. HEMATOLOGIC: Denies bleeding disorders. GENITOURINARY: Denies any blood in urine. SKIN: Denies puritis. Denies rash. Physical examination: Gen: This is a 63-year-old male in no acute distress VS: reviewed HEENT: Head is atraumatic, normocephalic. Pupils equal, round. Sclerae is anicteric. NECK: Supple. No JVD. LUNGS: Clear to auscultation. No wheezes or rhonchi. No intercostal retractions. HEART: Regular rate and rhythm. Systolic murmur. ABDOMEN: Soft No tenderness. EXTREMITIES: Mild left lower extremity edema. No calf tenderness. NEUROLOGICAL: Patient is awake, alert and oriented x3. Assessment: Atypical chest pain, rule out acute coronary syndrome Hypertension Dyslipidemia Nonischemic cardiomyopathy History of DVT left lower extremity PVCs Plan: Resume patient's home cardiac medications Obtain additional troponin Obtain 2-D echocardiogram and Doppler study to assess cardiac structure and function N.p.o. after midnight for possible stress test Further recommendations to follow based upon clinical course Thank you kindly for this consultation. Nurse practitioner note has been reviewed, I agree with documented findings and plan of care. Patient was seen and examined. Past Medical History Past Medical History: Deep Vein Thrombosis (DVT), Hyperlipidemia, Hypertension Additional Past Medical History / Comment(s): Pleurisy History of Any Multi-Drug Resistant Organisms: None Reported Past Surgical History: Appendectomy, Prostate Surgery Additional Past Surgical History / Comment(s): osteoarthritis, TURP procedure Past Anesthesia/Blood Transfusion Reactions: No Reported Reaction Past Psychological History: No Psychological Hx Reported Smoking Status: Never smoker Past Alcohol Use History: None Reported Past Drug Use History: None Reported - Past Family History Mother Family Medical History: No Reported History Medications and Allergies Home Medications Medication Instructions Recorded Confirmed Type Omeprazole [PriLOSEC] 20 mg PO DAILY 06/29/18 04/03/24 History atenoloL 25 mg PO DAILY 06/29/18 04/03/24 History buPROPion HCL [Wellbutrin Sr] 200 mg PO BID 06/29/18 04/03/24 History Atorvastatin [Lipitor] 40 mg PO DAILY 08/13/23 04/03/24 History Multivitamins, Thera [Multivitamin 1 tab PO DAILY 04/03/24 04/03/24 History (formulary)] ramipriL 10 mg PO DAILY 04/03/24 04/03/24 History Allergies Allergy/AdvReac Type Severity Reaction Status Date / Time No Known Allergies Allergy Verified 04/03/24 10:57 Physical Exam Vitals: Vital Signs Temp Pulse Resp BP Pulse Ox 04/03/24 13:18 70 16 153/90 96 04/03/24 11:37 80 16 156/89 97 04/03/24 10:32 70 16 147/84 96 04/03/24 09:57 70 18 97 04/03/24 08:39 76 18 162/69 95 04/03/24 08:06 97.4 F L 63 18 149/85 97 Intake and Output 04/02/24 04/03/24 04/03/24 22:59 06:59 14:59 Other: Weight 129.274 kg Results 04/03/24 08:28 04/03/24 08:28 Cardiac Enzymes 04/03/24 04/03/24 04/03/24 Range/Units 08: 08:28 11:42 AST 34 (17-59) U/L Troponin I <0.012 <0.012 (0.000-0.034) ng/mL Coagulation 04/03/24 Range/Units 08:28 PT 11.5 (10.0-12.5) sec APTT 25.1 (22.0-30.0) sec CBC 04/03/24 Range/Units 08:28 WBC 6.4 (3.8-10.6) k/uL RBC 5.24 (4.30-5.90) m/uL Hgb 16.5 (13.0-17.5) gm/dL Hct 49.1 (39.0-53.0) % Plt Count 170 (150-450) k/uL Comprehensive Metabolic Panel 04/03/24 Range/Units 08:28 Sodium 138 (137-145) mmol/L Potassium 4.1 (3.5-5.1) mmol/L Chloride 105 (98-107) mmol/L Carbon Dioxide 23 (22-30) mmol/L BUN 22 H (9-20) mg/dL Creatinine 0.99 (0.66-1.25) mg/dL Glucose 140 H (74-99) mg/dL Calcium 9.0 (8.4-10.2) mg/dL AST 34 (17-59) U/L ALT 37 (4-49) U/L Alkaline Phosphatase 80 (38-126) U/L Total Protein 7.3 (6.3-8.2) g/dL Albumin 4.6 (3.5-5.0) g/dL Current Medications Generic Name Dose Route Start Last Admin Trade Name Freq PRN Reason Stop Dose Admin Aspirin 81 mg 04/04/24 09:00 Aspirin 81 Mg PO DAILY [facility] Atenolol 25 mg 04/03/24 12:30 04/03/24 13:17 Atenolol 25 Mg Tab PO 25 mg DAILY LISA Administration Atorvastatin Calcium 40 mg 04/03/24 12:30 04/03/24 13:17 Atorvastatin 40 Mg Tab PO 40 mg DAILY LISA Administration Lisinopril 40 mg 04/03/24 12:30 04/03/24 13:17 Lisinopril 20 Mg Tab PO 40 mg DAILY LISA Administration Nitroglycerin 0.4 mg 04/03/24 11:17 Nitroglycerin Sl Tabs 0.4 Mg Tab SUBLINGUAL Q5M PRN Chest Pain Intake and Output 04/02/24 04/03/24 04/03/24 22:59 06:59 14:59 Other: Weight 129.274 kg Patient Weight 04/04/24 06:59 Weight 129.274 kg 04/03/24 08:28 04/03/24 08:28
[2024-04-04] MEDS ORDERED: CAFFEINE CITRATE 60 MG/3 ML VIAL IV PRN (08:03)
[2024-04-04] MEDS ORDERED: REGADENOSON 0.4 MG/5 ML SYRINGE IV PRN (08:03)
[2024-04-04] MEDS ORDERED: AMINOPHYLLINE 500 MG/20 ML VIAL IV PRN (08:03)
[2024-04-04 08:47] LABS: Chol/HDL Ratio 3.08 Ratio; LDL Cholesterol,Calculated 68.9 mg/dL (0.0-131.0)
[2024-04-04] MEDS ORDERED: ASPIRIN 325 MG TAB PO SCH (09:00)
--- NOTE | 2024-04-04 09:08 | P.HPIM ---
History of Present Illness H&P Date: 04/04/24 This is a 61-year-old male who presented to the emergency department with complaints of chest pain. Patient reports pain had started admit midnight yesterday and describes it as a sharp pain in the center of his lower chest and also felt the pain in his right arm. Patient also describes the pain as a lot of pressure substernally. Patient denies any nausea or vomiting. He does have a strong family history of heart disease. Patient seen this morning sitting up in bed, reports pain is improved. Cardiology has been consulted and have ordered an echo. Further medical history as noted below. Review of Systems Constitutional: Denies chills, Denies fever Cardiovascular: Reports chest pain, Denies dyspnea on exertion, Denies shortness of breath, Denies syncope Respiratory: Denies cough, Denies dyspnea Gastrointestinal: Denies abdominal pain, Denies nausea, Denies vomiting Musculoskeletal: Denies arm numbness/tingling, Denies leg numbness/tingling Neurological: Denies headaches, Denies weakness Past Medical History Past Medical History: Deep Vein Thrombosis (DVT), Hyperlipidemia, Hypertension, Osteoarthritis (OA) Additional Past Medical History / Comment(s): Pleurisy (35 years ago), tested positive for prostate cancer in Spring 2023 History of Any Multi-Drug Resistant Organisms: None Reported Past Surgical History: Appendectomy, Prostate Surgery Additional Past Surgical History / Comment(s): TURP procedure, cortisone shots in bilateral knees Past Anesthesia/Blood Transfusion Reactions: No Reported Reaction Past Psychological History: No Psychological Hx Reported Smoking Status: Never smoker Past Alcohol Use History: None Reported Past Drug Use History: None Reported - Past Family History Mother Family Medical History: No Reported History Medications and Allergies Home Medications Medication Instructions Recorded Confirmed Type Omeprazole [PriLOSEC] 20 mg PO DAILY 06/29/18 04/03/24 History atenoloL 25 mg PO DAILY 06/29/18 04/03/24 History buPROPion HCL [Wellbutrin Sr] 200 mg PO BID 06/29/18 04/03/24 History Atorvastatin [Lipitor] 40 mg PO DAILY 08/13/23 04/03/24 History Multivitamins, Thera [Multivitamin 1 tab PO DAILY 04/03/24 04/03/24 History (formulary)] ramipriL 10 mg PO DAILY 04/03/24 04/03/24 History Allergies Allergy/AdvReac Type Severity Reaction Status Date / Time No Known Allergies Allergy Verified 04/03/24 10:57 Physical Exam Vitals: Vital Signs Temp Pulse Pulse Resp BP BP Pulse Ox 04/04/24 07:00 98.1 F 59 L 16 158/96 94 L 04/04/24 01:37 97.8 F 51 L 16 146/84 95 04/03/24 20:55 97.6 F 54 L 16 149/83 95 04/03/24 20:35 97.2 F L 60 19 129/59 94 L 04/03/24 19:37 97.4 F L 57 L 18 125/79 95 04/03/24 15:08 61 18 134/83 95 04/03/24 13:18 70 16 153/90 96 04/03/24 11:37 80 16 156/89 97 04/03/24 10:32 70 16 147/84 96 04/03/24 09:57 70 18 97 Intake and Output 04/03/24 04/04/24 04/04/24 22:59 06:59 14:59 Intake Total 0 Balance 0 Intake: Oral 0 Other: # Voids 1 2 Weight 129.274 kg - Constitutional General appearance: cooperative, no acute distress - EENT Eyes: PERRLA - Neck Neck: no lymphadenopathy, normal ROM, no rigidity - Respiratory Respiratory: bilateral: CTA - Cardiovascular Rhythm: regular Heart sounds: normal: S1, S2 - Gastrointestinal General gastrointestinal: soft, no tenderness - Integumentary Integumentary: normal, normal turgor - Psychiatric Psychiatric: A&O x's 3, appropriate affect, intact judgment & insight Results CBC & Chem 7: 04/03/24 08:28 04/03/24 08:28 Labs: Abnormal Lab Results - Last 24 Hours (Table) 04/03/24 Range/Units 08:28 D-Dimer 2.90 H (<0.60) mg/L FEU Assessment and Plan (1) Chest pain Current Visit: Yes Status: Acute Code(s): R07.9 - CHEST PAIN, UNSPECIFIED SNOMED Code(s): 33111510 (2) Hypertension Current Visit: Yes Status: Acute Code(s): I10 - ESSENTIAL (PRIMARY) HYPERTENSION SNOMED Code(s): 12750161 (3) Hyperlipidemia Current Visit: Yes Status: Acute Code(s): E78.5 - HYPERLIPIDEMIA, UNSPECIFIED SNOMED Code(s): 70009452 (4) GERD (gastroesophageal reflux disease) Current Visit: Yes Status: Acute Code(s): K21.9 - GASTRO-ESOPHAGEAL REFLUX DISEASE WITHOUT ESOPHAGITIS SNOMED Code(s): 471886704 Plan: Continue home medications. Await results of echo Cardiology has discussed possible stress test today. Patient seen and evaluated by nurse practitioner, physician in agreement with plan.
[2024-04-04] MEDS: ASPIRIN 81 MG PO SCH (09:33)
[2024-04-04] MEDS: PANTOPRAZOLE 40 MG TABLET PO SCH (09:33)
[2024-04-04] MEDS: MULTIVITAMINS, THERA 1 EACH TAB PO SCH (09:33)
[2024-04-04] MEDS: buPROPion SR 100 MG TABLET.ER PO SCH (09:34)
--- NOTE | 2024-04-04 10:22 | P.PN ---
Subjective Progress Note Date: 04/04/24 Consult reason: chest pain History of present illness: This is a 63-year-old male patient of Dr. Hyde with past medical history of hypertension, dyslipidemia, nonischemic cardiomyopathy, DVT, PVCs. We have been asked to evaluate the patient for chest pain. Patient states that he was sitting in his recliner and simultaneously he had electrifying mid chest pain and also electrifying pain in his right hand. He states it had been about 6 times around midnight pain did not seem to be related to movement. No lightheadedness or dizziness, no syncopal episodes. Blood pressure 156/89, heart rate 80, pulse ox 97% on room air. Patient is seen today in the emergency center waiting for a bed on the cardiac stepdown unit. EKG: #1 sinus rhythm with frequent PVCs, #2 sinus rhythm with no acute ST-T wave changes. Chest x-ray: No acute process CTA of the chest no definite PE Ultrasound of the left lower extremity negative for DVT Laboratory studies: WBC 6.4, hemoglobin 16.5. D-dimer 2.9. Electrolytes are normal with BUN 22 creatinine 0.99. Magnesium is 2. Troponin negative x 2. proBNP 216. Home cardiac medications: Atenolol 25 mg daily, atorvastatin 40 mg daily, ramipril 10 mg daily. Cardiac catheterization performed in 2002 revealed EF of 45% and normal coronary arteries Echocardiogram performed in the office on 12/23/2021 revealed EF of 50 to 55%, indeterminate diastolic dysfunction. Severe left ventricular hypertrophy. Mild MR, mild TR, normal PASP, mild to moderate pulmonic regurgitation. Lexiscan Cardiolite stress test performed 11/13/2021 revealed EF of 57%, no ischemia, fixed cavity dilatation. 04/04 Patient was made n.p.o. as we waited for more diagnostic testing to come back. Repeat EKG shows sinus rhythm with no acute ST changes. All troponins have been negative. Triglycerides 101, cholesterol 132, LDL 68, HDL 42. Patient denies having any chest pain or shortness of breath at this time. Echocardiogram has been obtained and report is pending. Physical examination: Gen: This is a 63-year-old male in no acute distress VS: reviewed HEENT: Head is atraumatic, normocephalic. Pupils equal, round. Sclerae is anic teric. NECK: Supple. No JVD. LUNGS: Clear to auscultation. No wheezes or rhonchi. No intercostal retractions. HEART: Regular rate and rhythm. Systolic murmur. ABDOMEN: Soft No tenderness. EXTREMITIES: Mild left lower extremity edema. No calf tenderness. NEUROLOGICAL: Patient is awake, alert and oriented x3. Assessment: Atypical chest pain, rule out acute coronary syndrome Hypertension Dyslipidemia Nonischemic cardiomyopathy History of DVT left lower extremity PVCs Plan: Continue patient's home cardiac medications Obtain 2-D echocardiogram and Doppler study report Schedule patient for Lexiscan stress test today If stress test and echocardiogram are unremarkable, patient is cleared for discharge home may follow-up with Dr. Hyde in the office in 1 to 2 weeks. Nurse practitioner note has been reviewed, I agree with documented findings and plan of care. Patient was seen and examined. Objective - Vital Signs Vital signs: Vital Signs Temp 97.8 F 04/04/24 01:37 Pulse 51 L 04/04/24 01:37 Resp 16 04/04/24 01:37 BP 146/84 04/04/24 01:37 Pulse Ox 95 04/04/24 01:37 FiO2 Intake & Output 04/03/24 04/04/24 04/04/24 18:59 06:59 18:59 Intake Total 0 Balance 0 Weight 129.274 kg 129.274 kg Intake: Oral 0 Other: # Voids 2 - Labs CBC & Chem 7: 04/03/24 08:28 04/03/24 08:28 Labs: Abnormal Lab Results - Last 24 Hours (Table) 04/03/24 04/03/24 Range/Units 08:28 08:28 D-Dimer 2.90 H (<0.60) mg/L FEU BUN 22 H (9-20) mg/dL Glucose 140 H (74-99) mg/dL
--- NOTE | 2024-04-04 10:34 | CA ---
Transthoracic Echo Report Name: Phil Toro Age: 63 Gender: M : 1960 Exam Date: 04/03/2024 13:50 Exam Location: [facility] Ht (in): 79 Wt (lb): 285 Ordering Physician: Harshal Harp PAC Attending/Referring Phys: [id number], Loyd Sanding Machine Operator Odalis Sood RDCS Procedure CPT: Indications: Chest Pain Cardiac Hx: Technical Quality: Fair Contrast 1: Total Dose (mL): Contrast 2: Total Dose (mL): MEASUREMENTS (Male / Female) Normal Values 2D ECHO LV Diastolic Diameter PLAX 4.9 cm 4.2 - 5.9 / 3.9 - 5.3 cm LV Systolic Diameter PLAX 2.6 cm IVS Diastolic Thickness 1.6 cm 0.6 - 1.0 / 0.6 - 0.9 cm LVPW Diastolic Thickness 1.3 cm 0.6 - 1.0 / 0.6 - 0.9 cm LV Relative Wall Thickness 0.6 RV Internal Dim ED PLAX 3.8 cm LA Volume 103.9 cm??? 18 - 58 / 22 - 52 cm??? LA Volume Index 38.3 cm???/m??? 16 - 28 cm???/m??? M-MODE Aortic Root Diameter MM 3.6 cm LA Systolic Diameter MM 4.4 cm LA Ao Ratio MM 1.2 AV Cusp Separation MM 2.1 cm DOPPLER AV Peak Velocity 146.1 cm/s AV Peak Gradient 8.5 mmHg AV Mean Velocity 102.6 cm/s AV Mean Gradient 4.6 mmHg AV Velocity Time Integral 31.6 cm LVOT Peak Velocity 96.8 cm/s LVOT Peak Gradient 3.7 mmHg LVOT Velocity Time Integral 20.9 cm MV Area PHT 2.2 cm??? Mitral E Point Velocity 97.4 cm/s Mitral A Point Velocity 84.9 cm/s Mitral E to A Ratio 1.1 MV Deceleration Time 348.8 ms MV E' Velocity 5.5 cm/s Mitral E to MV E' Ratio 17.7 FINDINGS Left Ventricle Moderately increased left ventricular wall thickness. Left ventricular cavity size normal. Normal left ventricular systolic function with no obvious regional wall motion abnormalities. Left ventricular ejection fraction is estimated at 55 %. Grade 1 diastolic dysfunction. Right Ventricle Mild right ventricular dilatation. Right ventricular systolic pressure within normal limits. Right Atrium Right atrial dilatation. Left Atrium Severely increased left atrial volume. Mildly increased left atrial area. Mitral Valve Structurally normal mitral valve. Mild mitral regurgitation. Aortic Valve Trileaflet aortic valve. No aortic valve stenosis or regurgitation. Tricuspid Valve Structurally normal tricuspid valve. Mild tricuspid regurgitation. Pulmonic Valve Structurally normal pulmonic valve. Mild pulmonic regurgitation. Pericardium No pericardial effusion. Aorta Normal size aortic root and proximal ascending aorta. CONCLUSIONS Normal LV function Biatrial enlargement Mild mitral regurgitation Previewed by: Dr. Kole Tran MD (Electronically Signed) Final Date: 04 April 2024 10:33
--- NOTE | 2024-04-04 12:42 | CA ---
Lexiscan Nuclear Stress Test Report Name: Phil Toro Exam Date: 04/04/2024 11:40 Exam Location: [place] [facility] Ht (in): 79 Wt (lb): 285 BSA: 2.65 Ordering Phys: Carolina Alamo Referring Phys: SYMONE KEBEDE Technologist: DARLENE Age: 63 Gender: M : 1960 Procedure CPT: Indications: Reflex order-Stress test ICD-10 Codes: Patient History: Chest pain Medications: Meds past 24 hrs: Pretest Chest Pain: STRESS TEST Lexiscan Protocol Exercise Duration (min:sec): 02:[address] Depressions (mm): Angina Score: Holley Score: Resting HR (bpm): 66 Peak HR (bpm): 74 Resting BP (mmHg): 180 / 88 Peak BP (mmHg): 172 / 87 MPHR: 156 Target HR: 133 % MPHR: 47 METS: 1.0 Total Dose: Peak Dose: Atropine: Double Product: 74643 BP Response: Stress Termination: Infusion complete Stress Symptoms: No chest pain or symptoms Stress Summary: ECG ANALYSIS Resting ECG: Normal sinus rhythm normal axis normal intervals Stress ECG: Patient is given intravenous Lexiscan as per protocol did not have chest pain or diagnostic ST segment depression CONCLUSIONS Negative stress test by EKG criteria Cardiolite portion of the stress test will be reported separately Dr. Kole Tran MD (Electronically Signed) Final Date: 04 April 2024 12:42
--- NOTE | 2024-04-04 13:31 | NM ---
EXAMINATION TYPE: NM stress lexiscan cardiolite DATE OF EXAM: 04/04/2024 COMPARISON: NONE CLINICAL INDICATION: Male, 63 years old with history of chest pain; TECHNIQUE: After the intravenous administration of 9.6 mCi Tc 99m Sestamibi - Cardiolite resting SPE CT images acquired 45 minutes post injection. The patient received 0.4mg Lexiscan, 26.9 mCi Tc 99m Sestamibi - Stress images obtained [address] injection FINDINGS: Review of stress and rest SPECT images demonstrates fixed perfusion defects mid anteroseptal wall as well as the inferior wall. No discrete reversibility is seen. Gated analysis shows normal wall motion with an diminished estimated left ventricular ejection fraction of 43 %. TID is calculated at 0.98, within normal limits. IMPRESSION: 1. Fixed defect mid anteroseptal wall and along the entire inferior wall favored to represent areas o f attenuation artifact. Correlate for any history of prior infarcts. 2. Estimated LVEF is diminished at 43%. Further evaluation as clinically indicated. [facility], , 04/04/2024 1:29 PM
[2024-04-04] MEDS: ACETAMINOPHEN TAB 325 MG TAB PO PRN (16:40)
[2024-04-05] MEDS ORDERED: HEPARIN SODIUM,PORCINE (1 ML) 2,500 UNIT in SODIUM CHLORIDE 0.9% 250 ML IRRIGATION PRN (07:00)
[2024-04-05] MEDS ORDERED: HEPARIN SODIUM,PORCINE 10,000 UNIT in SODIUM CHLORIDE 0.9% 1,000 ML IRRIGATION PRN (07:00)
[2024-04-05] MEDS ORDERED: ALPRAZolam 0.5 MG TAB PO PRN (08:05)
[2024-04-05] MEDS ORDERED: ALPRAZolam 0.25 MG TAB PO PRN (08:05)
[2024-04-05] MEDS ORDERED: NITROGLYCERIN SL TABS 0.4 MG TAB SUBLINGUAL PRN (08:05)
[2024-04-05] MEDS: ATORVASTATIN 80 MG TAB PO STA (08:21)
[2024-04-05] MEDS: ASPIRIN 325 MG TAB PO STA (08:21)
[2024-04-05] MEDS: SODIUM CHLORIDE 0.9% 1,000 ML in EMPTY BAG 1 BAG IV SCH (08:22)
--- NOTE | 2024-04-05 08:57 | P.PN ---
Subjective Principal diagnosis: Patient is 63-year-old white male with history of reflux esophagitis. Ended up having chest pain which is atypical but showed fixed defect. The patient does not describe any discomfort. No fever or chills. No nausea, vomiting or diarrhea. Patient is scheduled for cardiac catheterization. Lexiscan test was reviewed Objective - Vital Signs Vital signs: Vital Signs Temp 97.7 F 04/05/24 07:00 Pulse 61 04/05/24 07:00 Resp 16 04/05/24 07:00 BP 157/95 04/05/24 07:00 Pulse Ox 94 L 04/05/24 07:00 FiO2 Intake & Output 04/04/24 04/05/24 04/05/24 18:59 06:59 18:59 Intake Total 480 0 Balance 480 0 Intake: Oral 480 0 Other: # Voids 1 2 - Constitutional General appearance: Present: average body habitus, cooperative, no acute distress - EENT Eyes: Absent: abnormal pupil - Neck Neck: Absent: lymphadenopathy - Respiratory Respiratory: bilateral: diminished - Cardiovascular Rhythm: regular Heart sounds: normal: S1, S2 Abnormal Heart Sounds: Absent: S3 Gallop - Gastrointestinal General gastrointestinal: Present: soft. Absent: tenderness - Integumentary Integumentary: Absent: cellulitis - Neurologic Neurologic: Present: CNII-XII intact - Labs CBC & Chem 7: 04/03/24 08:28 04/03/24 08:28 Assessment and Plan (1) Chest pain Current Visit: Yes Status: Acute Code(s): R07.9 - CHEST PAIN, UNSPECIFIED SNOMED Code(s): 82055508 (2) GERD (gastroesophageal reflux disease) Current Visit: Yes Status: Acute Code(s): K21.9 - GASTRO-ESOPHAGEAL REFLUX DISEASE WITHOUT ESOPHAGITIS SNOMED Code(s): 775379650 (3) Hyperlipidemia Current Visit: Yes Status: Acute Code(s): E78.5 - HYPERLIPIDEMIA, UNSPECIFIED SNOMED Code(s): 94006037 (4) Hypertension Current Visit: Yes Status: Acute Code(s): I10 - ESSENTIAL (PRIMARY) HYPERTENSION SNOMED Code(s): 57639371 Plan: Await cardiology workup. Anticipate discharge once cleared by cardiology. Question need for EGD as an outpatient
--- NOTE | 2024-04-05 09:57 | PN ---
PROGRESS NOTE A 63-year-old gentleman, who is admitted to hospital with chest pain and ruled out for myocardial infarction, underwent a Lexiscan that revealed an EF of 44% with fixed anterior and inferior wall defects. Due to this, I talked to the patient at length about his stress test abnormality and treatment options including watchful waiting and outpatient followup versus cardiac catheterization for definitive diagnosis. Understanding risks, benefits, he wishes to have a catheterization done and I am going to ask Dr. Hyde, his primary azure architect to do the same. MMODL / IJN: [id number] /
[2024-04-05 11:39] VITALS: TEMP 98
[2024-04-05] MEDS: IV FLUID CONTINUATION 1,000 ML IV ONE (12:05)
[2024-04-05] MEDS: fentaNYL (PF) 50 MCG/ML 2 ML AMP IVP ONE (12:19)
[2024-04-05] MEDS: LIDOCAINE 1% INJ 10MG/ML (20 ML MDV) SQ ONE (12:20)
[2024-04-05] MEDS: MIDAZOLAM 2 MG/2 ML VIAL IVP ONE (12:21)
[2024-04-05] MEDS: VERAPAMIL SYRINGE (5 MG/10 ML) INTRAARTER ONE (12:23)
[2024-04-05] MEDS: HEPARIN SODIUM 1,000 UN/ML (10ML VL) IV ONE (12:27)
[2024-04-05] MEDS: IOPAMIDOL-370 100ML BTL INJ ONE (12:33)
[2024-04-05] MEDS ORDERED: RX INFO: IV CONTRAST WAS GIVEN 1 EACH MISC MISCELLANE PRN (12:45)
--- NOTE | 2024-04-05 12:49 | P.CARDCATH ---
Date of Procedure: 04/05/24 Description of Procedure: Cardiac Catheterization: The patient is a 63-year-old male with a known history of hypertension and hyperlipidemia who presented with symptoms of chest discomfort and no evidence of myocardial infarction. He had an abnormal MPI. Recommendations were made regarding cardiac catheterization, the risks and the complications were discussed with the patient who is in full understanding and agreement. Procedure Description: Patient was brought to general laborer in fasting semi-sedated state after receiving Fentanyl and Benadryl achieiving moderate conscious sedated state. Using Xylocaine Anesthesia and modified Seldinger technique, a 6-Grenadian sheath was introduced in the right radial artery . Subsequently, selective coronary angiography was performed using a 5-Grenadian 3.5 bend Jennifer catheter. Multiple views of the coronary artery including hemiaxial views were obtained. The 6 Grenadian pigtail catheter was used to cross the aortic valve and LVEDP was calculated. Following that, catheter and sheath were removed. Hemostasis was obtained with deployment of vascular band . There was no immediate complication. Patient was returned to room in stable condition. Of note, the patient received a total of 5000 units of intravenous heparin as well as intra-arterial verapamil. Findings: Left main: This is a short size vessel, bifurcating into LAD and left circumflex, left main has no obstructive disease LAD: This is a large size vessel, reaching to the apex with a wraparound apex segment giving rise to a proximal large diagonal branch. The LAD and its branches have no evidence of obstructive disease Left circumflex: This is a large nondominant vessel giving rise to a large obtuse marginal branch that has no evidence of obstructive disease RCA: This is a large dominant vessel giving rise to a PDA, the right coronary artery and its branches have no evidence of obstructive disease Left Ventriculogram: Not performed Hemodynamics: There was no gradient across the aortic valve, LVEDP was 16-20 mmHg Conclusion: 1. Normal coronary arteries 2. Right dominance Recommendations: I see no evidence of obstructive disease to explain his abnormal MPI. I will continue on present medical regimen and depending on his progress further recommendations will be made. The findings and the recommendations were discussed with the patient and the family and they were in full understanding and agreement. Duration of sedation is 15 minutes.
[2024-04-05 13:04] VITALS: RESP 16
[2024-04-05] MEDS: SODIUM CHLORIDE 0.9% 1,000 ML IV SCH (13:22)
--- NOTE | 2024-04-05 14:19 | P.DS ---
Providers Date of admission: 04/03/24 11:10 Attending physician: Balta Barfield Consults: 04/03/24 11:17 Consult Physician Urgent Consulting Provider: Devin Mueller Consult Reason/Comments: chest pain Do you want consulting provider notified?: Yes Primary care physician: Balta Barfield - Discharge Diagnosis(es) (1) Chest pain Current Visit: Yes Status: Acute (2) GERD (gastroesophageal reflux disease) Current Visit: Yes Status: Acute (3) Hyperlipidemia Current Visit: Yes Status: Acute (4) Hypertension Current Visit: Yes Status: Acute Hospital Course: This is a discharge summary [age]-year-old white male who came in with atypical type chest pain. However Lexiscan stress test was equivocal. He ended up having a cardiac catheterization which did not show a significant coronary artery disease. He is discharged home with aspirin in stable condition and will follow up with cardiology in the next 4-6 weeks. We will see him within the next week. Patient Condition at Discharge: Good Plan - Discharge Summary Discharge Rx Participant: No New Discharge Prescriptions: New Aspirin 81 mg PO DAILY #90 tab NS Continue Omeprazole [PriLOSEC] 20 mg PO DAILY buPROPion HCL [Wellbutrin SR] 200 mg PO BID atenoloL 25 mg PO DAILY Atorvastatin [Lipitor] 40 mg PO DAILY Multivitamins, Thera [Multivitamin (formulary)] 1 tab PO DAILY ramipriL 10 mg PO DAILY Discharge Medication List Omeprazole [PriLOSEC] 20 mg PO DAILY 06/29/18 [History] atenoloL 25 mg PO DAILY 06/29/18 [History] buPROPion HCL [Wellbutrin SR] 200 mg PO BID 06/29/18 [History] Atorvastatin [Lipitor] 40 mg PO DAILY 08/13/23 [History] Multivitamins, Thera [Multivitamin (formulary)] 1 tab PO DAILY 04/03/24 [History] ramipriL 10 mg PO DAILY 04/03/24 [History] Aspirin 81 mg PO DAILY #90 tab NS 04/05/24 [Rx] Follow up Appointment(s)/Referral(s): Edgar Hyde MD [STAFF PHYSICIAN] - 1 Week Balta Barfield MD [Primary Care Provider] - 1-2 days
[2024-04-05 16:06] VITALS: BP 132/81
[2024-04-05 16:36] VITALS: PULSE 60
== END 2024-04-05 17:40 | disposition home or self-care (01) ==
LOC: EC 08:04 → 6NMEDSUR 11:10
PROVIDERS: ADMIT Family Medicine; ATTEND Family Medicine
DX: R07.9 Chest pain, unspecified (principal); I10 Essential (primary) hypertension; K21.9 Gastro-esophageal reflux disease without esophagitis; I49.3 Ventricular premature depolarization; I42.8 Other cardiomyopathies; I37.1 Nonrheumatic pulmonary valve insufficiency; E78.5 Hyperlipidemia, unspecified; Z86.718 Personal history of other venous thrombosis and embolism; Z82.49 Family history of ischemic heart disease and other diseases of the circulatory system; Z79.899 Other long term (current) drug therapy
CPT/HCPCS: 99285; 36415; 93005 ×2; 93017; 93306; 93458; 85379; 83880; 80061; 80053; 83735; 84484; 85025; 85610; 85730; 71046; 93971; 71275; 78452; G0378 ×3; C1769 ×2; C1894; A9500; J2250; S0106 ×2; J2003; J3010; J1644; J2785; Q9967 ×2

== ENCOUNTER → 2024-08-07 | Outpatient (CLI) | payer OTHER, MEDICARE | END | disposition home or self-care (01) | LOC: LABWHC1 09:17 | PROVIDERS: ATTEND Family Medicine | DX: C61 Malignant neoplasm of prostate (principal) | CPT/HCPCS: 36415; 84153 ==

== ENCOUNTER → 2024-10-11 | Outpatient (CLI) | payer MEDICARE, OTHER ==
[2024-10-11 15:32] LABS: Chol/HDL Ratio 3.25 Ratio
[2024-10-11 15:33] LABS: ALT 42 U/L (10-49); AST 33 U/L (14-35); Albumin 4.6 g/dL (3.8-4.9); Alkaline Phosphatase 97 U/L (41-126); BUN/Creat Ratio 11.82 Ratio (12.00-20.00); Calcium 9.6 mg/dL (8.7-10.3); Carbon Dioxide 25.7 mmol/L (21.6-31.8); Chloride 105 mmol/L (96-109); Globulin 2.7 g/dL (1.6-3.3); Glucose 119 mg/dL (70-110); LDL Cholesterol,Calculated 84.2 mg/dL (0.0-131.0); Potassium 4.4 mmol/L (3.5-5.5); Sodium 142 mmol/L (135-145); Total Protein 7.3 g/dL (6.2-8.2)
== END | disposition home or self-care (01) ==
LOC: LABWHC1 10:06
PROVIDERS: ATTEND Internal Medicine Interventional Cardiology
DX: E78.2 Mixed hyperlipidemia (principal)
CPT/HCPCS: 36415; 80053; 80061